=== PATIENT | female | born 1970 | race Caucasian/White ===

== ENCOUNTER → 2018-03-07 | Outpatient (CLI) | payer OTHER ==
[~2018-03-07] MED LIST: AMOXICILLIN500 MG PO; AUGMENTIN 875-875 MG PO; CLINDAMYCIN HC300 MG PO; MEDROL DOSEPAK4 MG PO; NAPROSYN500 MG PO; VICODIN ES 7501 TAB PO; ZOFRAN4 MG PO
== END | disposition home or self-care (01) ==
LOC: MAMMO 09:36
DX: Z12.31 Encounter for screening mammogram for malignant neoplasm of breast (principal); J40 Bronchitis, not specified as acute or chronic; R53.83 Other fatigue; E55.9 Vitamin D deficiency, unspecified; F17.200 Nicotine dependence, unspecified, uncomplicated

== ENCOUNTER → 2018-03-15 | Outpatient (CLI) | payer OTHER | END | disposition home or self-care (01) | LOC: MAMMO 09:00 | DX: N63.20 Unspecified lump in the left breast, unspecified quadrant (principal); R92.8 Other abnormal and inconclusive findings on diagnostic imaging of breast ==

== ENCOUNTER → 2020-10-09 | Outpatient (CLI) | payer OTHER | END | disposition home or self-care (01) | LOC: RESCLI 14:00 | PROVIDERS: ATTEND Student in an Organized Health Care Education/Training Program | DX: Z12.11 Encounter for screening for malignant neoplasm of colon (principal); N95.1 Menopausal and female climacteric states; B36.0 Pityriasis versicolor ==

== ENCOUNTER → 2020-10-23 | Outpatient (CLI) | payer OTHER | END | disposition home or self-care (01) | LOC: COVID19 14:54 | PROVIDERS: ATTEND Internal Medicine | DX: U07.1 COVID-19 (principal) ==

== ENCOUNTER → 2020-11-10 | Outpatient (CLI) | payer OTHER | END | disposition home or self-care (01) | LOC: RESCLI 00:15 | PROVIDERS: ATTEND Internal Medicine | DX: N95.1 Menopausal and female climacteric states (principal); B36.0 Pityriasis versicolor; U07.1 COVID-19; J45.909 Unspecified asthma, uncomplicated; Z12.11 Encounter for screening for malignant neoplasm of colon; Z12.31 Encounter for screening mammogram for malignant neoplasm of breast; Z79.899 Other long term (current) drug therapy; Z88.8 Allergy status to other drugs, medicaments and biological substances ==

== ENCOUNTER → 2020-12-15 | Outpatient (CLI) | payer OTHER | END | disposition home or self-care (01) | LOC: MAMMO 11-02 11:30 | PROVIDERS: ATTEND Internal Medicine | DX: Z12.31 Encounter for screening mammogram for malignant neoplasm of breast (principal) ==

== ENCOUNTER → 2021-01-07 | Outpatient (CLI) | payer OTHER | END | disposition home or self-care (01) | LOC: RESCLI 13:01 | PROVIDERS: ATTEND Internal Medicine | DX: R04.0 Epistaxis (principal); R69 Illness, unspecified; N95.1 Menopausal and female climacteric states; B36.0 Pityriasis versicolor; J45.909 Unspecified asthma, uncomplicated; Z79.899 Other long term (current) drug therapy; Z98.51 Tubal ligation status; Z87.891 Personal history of nicotine dependence; Z88.8 Allergy status to other drugs, medicaments and biological substances ==

== ENCOUNTER → 2022-10-17 | Outpatient (CLI) | payer OTHER | END | disposition home or self-care (01) | LOC: MAMMO 10-06 09:30 | PROVIDERS: ATTEND Physician Assistant | DX: Z12.31 Encounter for screening mammogram for malignant neoplasm of breast (principal) ==

== ENCOUNTER → 2022-11-02 | Outpatient (CLI) | payer OTHER | END | disposition home or self-care (01) | LOC: US 09:00 | PROVIDERS: ATTEND Physician Assistant | DX: N60.02 Solitary cyst of left breast (principal); R92.8 Other abnormal and inconclusive findings on diagnostic imaging of breast ==

== ENCOUNTER → 2023-02-13 | Day surgery (SDC) | payer OTHER ==
[~2023-02-13] VITALS: Ht 165.1 cm; Wt 86.2 kg
[~2023-02-13] MED LIST changes: +ADIPEX-P37.5 MG PO; +CLARITIN10 MG PO; +DAILY VALUE1 EACH PO; +FISH OIL 1,201200 MG PO; +Percocet 325 MG1 TAB PO; +VITAMIN D310 MC2 PO; +VITAMIN E PO; +WELLBUTRIN XL150 MG PO; +[UNRECOGNIZED DRUG - CODE] PO
[2023-02-13 07:51] VITALS: BP 116/74
[2023-02-13 09:22] VITALS: BP 122/71
[2023-02-13 09:37] VITALS: BP 126/80
[2023-02-13 09:52] VITALS: BP 130/84
[2023-02-13 12:14] VITALS: BP 122/71
== END | disposition home or self-care (01) ==
LOC: SDC 01-12 08:45
PROVIDERS: ATTEND Obstetrics & Gynecology
DX: N90.89 Other specified noninflammatory disorders of vulva and perineum (principal); N90.1 Moderate vulvar dysplasia; N89.4 Leukoplakia of vagina; J45.909 Unspecified asthma, uncomplicated; Z87.891 Personal history of nicotine dependence; Z88.1 Allergy status to other antibiotic agents

== ENCOUNTER → 2023-12-12 | Outpatient (CLI) | payer MEDICAID | END | disposition home or self-care (01) | LOC: RAD 15:54 | PROVIDERS: ATTEND Internal Medicine | DX: R05.8 Other specified cough (principal) ==